=== PATIENT | male | born 1950 | race Caucasian/White ===

== ENCOUNTER 2017-02-20 12:58 | Emergency (ER) | payer BC, OTHER ==
[2017-02-20 13:18] VITALS: BP 125/70; PULSE 95; O2SAT 94
--- NOTE | 2017-02-20 13:23 | ERPHSYRPT ---
- History of Present Illness Physician History: 67-year-old male came to the emergency room with complaining of hazy vision. He change his contact lens today and it replaced with the new one and since then he started having a hazy vision, he took new lenses off and still having a hazy reason, so he came to the emergency room. She denies any eye injury, any eye pain, any change in the vision acuity. Timing/Duration: today Location: bilateral eyes Apparent Injury: no Associated Symptoms: blurred vision Visual Assistive Devices: Contacts Chemical Exposure: No Trauma: No Welding Arc/Tanning Bed Exposure: No - Review of Systems Constitutional: No Symptoms Eyes: Vision Changes, No Eye Pain, No Eye Redness, No Photophobia, No Tearing, No Double Vision, No Foreign Body Sensation Ears, Nose, & Throat: No Symptoms - Physical Exam General Appearance: no apparent distress Vision Acuity Degree Evaluation Phase: Corrected Vision Acuity Right Eye: 20/20 Vision Acuity Left Eye: 20/20 Eye Exam: bilateral eye: normal inspection, PERRL, EOMI, conjunctival inflammation Ears, Nose, Throat Exam: normal ENT inspection - Course Nursing assessment & vital signs reviewed: Yes - Progress Progress: unchanged Counseled pt/family regarding: diagnosis, need for follow-up - Departure Time of Disposition: 13:24 Departure Disposition: Home Clinical Impression: Blurred vision, bilateral Condition: Stable Critical Care Time: No Referrals: SALVADOR GILLESPIE [Primary Care Provider] - Additional Instructions: Please do not wear contact lens till tomorrow. Wear Regular glasses. Go and see lehr operator tomorrow at [facility]. Do not wear contact lens. Since then. Please follow the instructions given to you. Please take your medication as prescribed if given. If symptoms recur or get worse, come back to the emergency room if you cannot reach your primary care physician, or call your primary care physician for an appointment. Again if your symptoms get worse, come back to the emergency room. Thanks for visiting emergency room, and let us take care of you. Prescriptions: Tobramycin/Dexamethasone [Tobradex St Eye Drops] 2 drops OP QID #5 drops.susp
== END 2017-02-20 13:38 | disposition home or self-care (01) ==
LOC: ED 12:58
DX: H53.8 Other visual disturbances (principal)
CPT/HCPCS: 99281; 99283